=== PATIENT | male | born 1965 | race Two or more races ===

== ENCOUNTER 2019-05-26 09:51 | Outpatient (CLI) | payer MEDICAID ==
[~2019-05-26] VITALS: Ht 188 cm; Wt 81.2 kg
[2019-05-26 14:07] VITALS: BP 126/77
[2019-05-26] MEDS ORDERED: METOPROLOL SUCC25 MG ORAL (14:07)
[2019-05-26] MEDS ORDERED: ATORVASTATIN CA20 MG ORAL (14:07)
[2019-05-26] MEDS ORDERED: DIOVAN80 MG ORAL (14:07)
--- NOTE | 2019-05-27 22:16 | Consultation ---
DATE OF CONSULTATION: 05/26/2019 CONSULTING PHYSICIAN: Rafiq Schroeder M.D. CHIEF COMPLAINT: Bloating, abdominal pain. HISTORY OF PRESENT ILLNESS: This is a very pleasant 54-year-old male with numerous medical problems including history of coronary artery disease, hypertension, depression. The patient apparently was recently on Coumadin was switched to Eliquis and now off of both of them. He was referred to us for evaluation of abdominal pain and bloating. PAST MEDICAL HISTORY: 1. Coronary artery disease. 2. Hypertension. 3. Depression. PAST SURGICAL HISTORY: History of heart surgery in May 2018. MEDICATIONS: Please see medication reconciliation list. FAMILY HISTORY: No family history of GI malignancies. SOCIAL HISTORY: The patient denies any tobacco, alcohol, or drug abuse. REVIEW OF SYSTEMS: Positive for abdominal pain, bloating, stools, mild constipation. ALLERGIES: He is allergic to iodine. PHYSICAL EXAMINATION: VITAL SIGNS: Temperature 97.5, pulse is 78, blood pressure is 120/77. HEENT: Normocephalic and atraumatic. Sclerae anicteric. NECK: Supple. No evidence of obvious lymphadenopathy. CARDIOVASCULAR: Regular rate and rhythm. Plus S1 and S2. No obvious murmur. LUNGS: Clear to auscultation bilaterally. ABDOMEN: Positive bowel sounds. Soft and nontender. No rebound. No guarding. No peritoneal sign. EXTREMITIES: No cyanosis. No clubbing. No edema. ASSESSMENT AND PLAN: This is a 54-year-old male with significant bloating highly suspicious for SIBO. The patient needs a colonoscopy, but at this time, given his grinder dresser has told him that he has to wait a year, so most probably has to wait for a colonoscopy next year to perform. Meanwhile, the patient was given a prescription for Cipro and Flagyl for possible SIBO with VSL#3 one capsule daily. The patient to return to see me after the above treatment is finished for further followup. Rafiq Schroeder M.D. DR: KIRSTEN JOB#: [id number] CC:
== END 2019-05-26 11:51 | disposition home or self-care (01) ==
LOC: PAN 09:51
DX: R14.0 Abdominal distension (gaseous) (principal); R10.9 Unspecified abdominal pain; I11.9 Hypertensive heart disease without heart failure; F32.9 Major depressive disorder, single episode, unspecified; Z79.01 Long term (current) use of anticoagulants; K59.00 Constipation, unspecified
CPT/HCPCS: G0463

== ENCOUNTER 2019-08-18 09:39 | Outpatient (CLI) | payer MEDICAID ==
[~2019-08-18 09:39] MED LIST: ATORVASTATIN CA20 MG ORAL; DIOVAN80 MG ORAL; METOPROLOL SUCC25 MG ORAL
--- NOTE | 2019-08-18 10:35 | General Progress Note ---
Assessment/Plan Assessment/Plan: 1. Coronary artery disease. 2. Hypertension. 3. Depression. 4. wt loss 5. screening colon eval plan EGd and colonoscopy Subjective ROS Limited/Unobtainable: Yes Allergies: Coded Allergies: Dust (Verified Allergy, Unknown, 05/26/19) IODINE AND IODIDE CONTAINING PRODUC (Verified Allergy, Unknown, 05/26/19) POLLEN EXTRACTS (Verified Allergy, Unknown, 05/26/19) Objective General Appearance: alert EENT: normal ENT inspection Neck: supple Cardiovascular: normal rate Respiratory/Chest: decreased breath sounds Abdomen: normal bowel sounds, non tender, soft Extremities: non-tender Rafiq Schroeder MD Aug 18, 2019 10:34
[2019-08-18 13:29] VITALS: BP 95/68
== END 2019-08-18 11:39 | disposition home or self-care (01) ==
LOC: PAN 09:39
DX: I25.10 Atherosclerotic heart disease of native coronary artery without angina pectoris (principal); I11.9 Hypertensive heart disease without heart failure; F32.9 Major depressive disorder, single episode, unspecified; R63.4 Abnormal weight loss; Z91.041 Radiographic dye allergy status